=== PATIENT | male | born 1990 | race Caucasian/White ===

== ENCOUNTER 2016-10-25 11:28 | Observation (INO) | payer OTHER ==
[~2016-10-25] VITALS: Ht 177.8 cm; Wt 65.9 kg
[2016-10-25] VITALS (8 sets, daily range): BP systolic 118–146; BP diastolic 68–90; PULSE 56–82; RESP 13–19; O2SAT 95–100
--- NOTE | 2016-10-25 11:44 | ED.REPORT ---
HPI-Seizure Date of Service October 25, 2016 ED Provider: History of Present Illness: 26yo male received 3 immunizations at PCP's this morning, reportedly had a seizure for 30 seconds upon getting off exam room table. No incontinence. Feels mildly lightheaded now. Did not eat anything today. Came in by EMS. He reports one previous similar incident while extracting a splinter from his hand. Nursing Notes Stated Complaint: SEIZURE Chief Complaint: General Complaint Nursing Notes Reviewed: Yes Allergies: Coded Allergies: No Known Allergies (Unverified , 10/25/16) General Time Seen by Provider: 12:00 Chief Complaint Chief Complaint: Seizure, generalized Seizure Anatomic Location: Generalized Hx Obtained From: Patient, Primary care provider Arrived By: Ambulance Onset Occurred: Just prior to arrival Context of Onset: Other (immunizations) Recent Healthcare: Recent doctor visit Similar Sx Previous: Yes Risk-Seizure IC Bleed Risk Stratification RF Statements: No risk factors SAH Risk Stratification RF Statements: No risk factors Past Medical History Past Medical History denies Past Surgical History R Knee ACL repair, 2009 Smoking History Light Tobacco Smoker Social History Alcohol Use: "Social" Drug Use: THC Ambulatory Status Independent Review of Systems Constitutional: Denies: Chills, Fever Eyes: Denies: Blurred bilateral Respiratory: Denies: Shortness of breath Cardiovascular: Denies: Chest pain Neurologic: Reports: Lightheaded, Seizure, Syncope, Denies: Bladder dysfunction, Bowel dysfunction, Dizziness, Focal weakness, Headache Physical Exam Initial Vital Signs Vital Signs (First) Date Time Temp Pulse Resp B/P Pulse Ox O2 Delivery O2 Flow Rate FiO2 10/25/16 11:31 36.9 61 16 123/88 100 Room Air Initial VS: Vital signs normal General/Constitutional: Awake, Alert, No acute distress, Well developed, Well hydrated Neck: Supple, No meningismus, Full range of motion Respiratory / Chest: Breath sounds NL, Breath sounds = bilat, No respiratory distress Cardiovascular: Heart rate NL, Regular rhythm, Heart sounds NL Neurologic: Oriented X3, Speech NL, No motor deficits, No sensory deficits, Cerebellar NL, Memory NL, Gait NL Abdomen: Soft, Non-tender, No guarding, No rebound Interpretation & Diagnostics Lab Results Interpretation Result Diagram: 10/25/16 1320 10/25/16 1320 Test 10/25/16 12:18 10/25/16 13:20 Hold Urine Received (Received) White Blood Count 7.0th/mm3 (3.8-10.1) Red Blood Count 5.54mil/mm3 (4.40-5.80) Hemoglobin 16.2g/dL (13.8-17.2) Hematocrit 47.2% (41.0-50.0) Mean Corpuscular Volume 85.2fL (81-100) Mean Corpuscular Hemoglobin 29.2pg (27.0-35.0) Mean Corpuscular Hemoglobin Concent 34.3% (32.0-37.0) Red Cell Distribution Width 11.9% (12.3-15.4) Platelet Count 183bil/L (150-400) Neutrophils (%) (Auto) 70.2% (40-74) Lymphocytes (%) (Auto) 17.0% (14-46) Monocytes (%) (Auto) 9.7% (4-12) Eosinophils (%) (Auto) 2.7% (0-5) Basophils (%) (Auto) 0.3% (0-3) Sodium Level 140mEq/L (134-144) Potassium Level 5.0mEq/L (3.5-5.2) Chloride Level 100mEq/L (97-108) Carbon Dioxide Level 29mmol/L (18-29) Blood Urea Nitrogen 15mg/dL (6-20) Creatinine 0.63mg/dL (0.76-1.27) Estimat Glomerular Filtration Rate 162mL/min (>59) Glucose Level 115mg/dL (60-99) Calcium Level 9.9mg/dL (8.5-10.1) Total Bilirubin 1.3mg/dL (0.0-1.2) Aspartate Amino Transf (AST/SGOT) 22U/L (0-50) Alanine Aminotransferase (ALT/SGPT) 19U/L (0-44) Alkaline Phosphatase 49U/L (25-150) Total Protein 7.4g/dL (6.4-8.4) Albumin 4.8g/dL (3.4-5.0) Hold Tavares Top Tube Received (Received) ECG Interpretation ECG Interpretation: Possible brugata pattern, reviewed by Dr. Kitchen Interpreted by: ED physician Rhythm / Conduction: Bradycardia Re-Eval/Medical Decision Med Decision/Clinical Course Suspect Pt. had vasovagel syncope following immunizations. Pt. observed in ED for 3 hours, remained stable. labs/ekg reviewed with Dr. Kitchen who advised cardiology review of ekg for possible Brugada pattern to ekg. Dr. Yuen, animal impersonator cardiology eviewed EKG, advised obs and echo. he will arrange outpatient Holter with PCP. Dr. Monroe, hospitalist accepted Pt. to his service. Counseled Regarding: Diagnosis, Lab results, Need for follow-up, When/why to return to ED Discharge & Departure Shift Change Sign-Out Input from Consult: Dr. Yuen advises observation and echocardiogram while inpatient. Impression: Primary Impression: Syncope Syncope type: unspecified Qualified Code: R55 - Syncope and collapse Additional Impression: Abnormal EKG Disposition: ADMITTED TO HOSPITAL Referrals: Aishwarya Rodrigues MD (PCP) EDSupervising Provider for APC: Vaughn Kitchen DO Attending Statement I have seen and examined the patient. I have reviewed the chart and agree with the documentation as recorded by the Midlevel Provider, including assessment, treatment plan, and disposition. Findings from my exam are included in documentation above. Fab Taylor PAC October 25, 2016 11:44 Vaughn Kitchen DO October 25, 2016 15:02
[2016-10-25 13:35] LABS: BASOPHILS % (AUTO) 0.3 % (0-3); EOSINOPHILS % (AUTO) 2.7 % (0-5); MONOCYTES % (AUTO) 9.7 % (4-12); Mean Corpuscular Hemoglobin 29.2 pg (27.0-35.0); Mean Corpuscular Volume 85.2 fL (81-100); NEUTROPHILS % (AUTO) 70.2 % (40-74); Platelet Count 183 bil/L (150-400)
[2016-10-25] MEDS ORDERED: Polyethylene Glycol (PEG) 17 Gm Powder PO PRN (17:20)
[2016-10-25] MEDS ORDERED: Ondansetron 2 mg/mL 2 mL Inj IVPUSH PRN (17:20)
[2016-10-25] MEDS ORDERED: Alum-Mag Hydrox-Simeth 30 mL Suspension PO PRN (17:20)
--- NOTE | 2016-10-25 17:39 | PCM.HPMED ---
Subjective Date of Service October 25, 2016 Primary Provider: Admitting Physician: Epi Monroe MD Primary Care Physician: Aishwarya Rodrigues MD Attending Physician: Epi Monroe MD Admit Status: From the Emergency Department, 23-Hour Observation, Admit to Red Team Chief Complaint: Syncope/1 h Seizure/1h History of Present Illness: 26-year-old gentleman with no significant past medical history was transferred from his PCPs office due to an episode of syncope and seizure-like activity which happened 1 hour ago. Patient went to his PCPs office and got immunization. He states shortly following immunization he developed lightheadedness and passed out. He states he was told that he had syncope and was unconscious for about 30 seconds and had none vigorous shaking movements of his upper extremities Which prompted transfer to the emergency room. Patient states he had similar episode 6 months ago while trying to remove a piece of glass from his hand using tweezer . That episode was witnessed by his girlfriend and reportedly had similar shaking. Patient also gives history of on and off near syncope in which he feels lightheaded when he sits up from supine or stands up from sitting suddenly. He gets these episodes once in a while. He thinks probably related to dehydration given the fact that it occurs more frequently in summer ED course: Unremarkable vital signs and exam. Unremarkable labs EKG abnormality and suspicious for Brugada syndrome. ED contacted cardiology and recommended overnight observation with workup with echocardiogram and possible EP eval tomorrow Review of Systems: A comprehensive review of systems performed, pertinent positives and negatives included in history of present illness Allergies Coded Allergies: No Known Allergies (Unverified , 10/25/16) Home Medications No home medications PMH None Surgical History Right knee surgery Family History Paternal uncle suddenly at age 49 due to possible heart attack His dad's paternal uncle had a pacemaker No other family history of sudden cardiac Social History Hx Alcohol Use: No Hx Substance Use: Yes (daily marijuana use) Smoking Status: Light Tobacco Smoker Exam Vital Signs Vital Sign - Last Date Time Temp Pulse Resp B/P Pulse Ox O2 Delivery O2 Flow Rate FiO2 10/25/16 17:21 36.8 56 13 121/68 99 Room Air Exam Gen. patient is lying comfortably in hospital bed HEENT: Head is normocephalic atraumatic, Pupils equal and reactive, extraocular movements intact, Lungs clear to auscultation bilaterally Heart regular rate and rhythm without murmurs gallops or rubs Abdomen soft nontender without hepatosplenomegaly Extremities pulses are present dorsalis pedis posterior tibialis and radial. tSkin is warm and dry there are no rashes, Psych alert and oriented to person place and time Neuro cranial nerves II through XII are grossly intact Lymph: There is no lymphadenopathy appreciated in the cervical supra infraclavicular regions : no alexandre Lab and Diagnostics Result Diagram: 10/25/16 1320 10/25/16 1320 Assessment & Plan 26-year-old gentleman with no significant past medical history was transferred from his PCPs office due to an episode of syncope and seizure-like activity which happened 1 hour ago. #Vasovagal syncope -History consistent with vasovagal syncope -No further workup # Abnormal EKG suspicious for Brugada syndrome - telemetry -Cardiology contacted by ED, they recommend echocardiogram and will arrange for outpatient Holter upon discharge -Possible EP consult tomorrow by cardiology Observation status, possible discharge tomorrow Full code Resuscitation Status: CPR: Attempt Resuscitation copies to: Aishwarya Rodrigues MD, Melaku MD October 25, 2016 17:39
[2016-10-26 00:31] VITALS: BP 107/63; PULSE 71; RESP 18; O2SAT 96
[2016-10-26 05:57] VITALS: BP 107/62; PULSE 84; RESP 18; O2SAT 97
[2016-10-26 08:08] VITALS: BP 117/68; PULSE 60; RESP 18; O2SAT 99
[2016-10-26 09:53] VITALS: PULSE 60
[2016-10-26 11:56] VITALS: BP 104/63; PULSE 52; RESP 18; O2SAT 100
--- NOTE | 2016-10-26 14:17 | PCM.DIMED ---
Discharge Instructions Date of Service October 26, 2016 Dates of Hospitalization October 25, 2016 at 17:10 Discharge Diagnosis Discharge Diagnosis #Vasovagal syncope # Abnormal EKG suspicious for Brugada syndrome Diet No restrictions Activity Limited until seen by PCP Call your provider Fever or Chills, Shortness of breath, Bleeding, Chest pain, Vomitting, Excessive diarrhea, Weakness (unilateral) Patient Instructions You were hospitalized due to vasovagal syncope. You were hospitalized due to concern of abnormal initial EKG in the emergency room which was suspicious for Brugada syndrome .( a rare genetic heart conduction abnormality which can cause familial sudden cardiac .) Please follow-up with PCP Dr. Rodrigues and he will arrange for outpatient Holter monitoring and echocardiogram. Please also follow up with in 1-2 weeks. Follow-up plan please follow up with PCP in 1 week Follow-up Provider: Aishwarya Rodrigues MD Follow-up with PCP in: 1 week Provider: Esvin Chowdhury MD Follow-up in: 1 week Epi Monroe MD October 26, 2016 14:17
--- NOTE | 2016-10-26 16:20 | PCM.DC.MED ---
Discharge Summary Date of Service October 26, 2016 Dates of Hospitalization Date of Hospital Admission October 25, 2016 at 17:10 Date of Discharge: October 26, 2016 Providers: Admitting Physician: Epi Monroe MD Primary Care Physician: Aishwarya Rodrigues MD Attending Physician: Epi Monroe MD Diagnosis at Time of Discharge Diagnosis at Time of Discharge #Vasovagal syncope # Abnormal EKG suspicious for Brugada syndrome Consultations cardiology Dr Chowdhury Procedures ECG 12 Lead SR ,CORNELIO on lead V1-2 ,suspicious for brugada Brief History per HPI 26-year-old gentleman with no significant past medical history was transferred from his PCPs office due to an episode of syncope and seizure-like activity which happened 1 hour ago. Patient went to his PCPs office and got immunization. He states shortly following immunization he developed lightheadedness and passed out. He states he was told that he had syncope and was unconscious for about 30 seconds and had none vigorous shaking movements of his upper extremities Which prompted transfer to the emergency room. Patient states he had similar episode 6 months ago while trying to remove a piece of glass from his hand using tweezer . That episode was witnessed by his girlfriend and reportedly had similar shaking. Patient also gives history of on and off near syncope in which he feels lightheaded when he sits up from supine or stands up from sitting suddenly. He gets these episodes once in a while. He thinks probably related to dehydration given the fact that it occurs more frequently in summer ED course: Unremarkable vital signs and exam. Unremarkable labs EKG abnormality and suspicious for Brugada syndrome. ED contacted cardiology and recommended overnight observation with workup with echocardiogram and possible EP eval tomorrow Hospital Course 26-year-old gentleman with no significant past medical history was transferred from his PCPs office due to an episode of syncope and seizure-like activity which happened 1 hour ago. #Vasovagal syncope -History consistent with vasovagal syncope -No further workup # Abnormal EKG suspicious for Brugada syndrome - telemetry, no event overnight -Cardiology contacted by ED, they recommend echocardiogram and PCP will arrange for outpatient Holter upon discharge -Also spoke with PCP Dr Rodrigues and he will follow with echocardiogram results and outpatient event monitoring -Brugada unlikely given no family history of sudden cardiac except an uncle at age 49 which seems to be due to heart attack -Advised to follow with cardiology outpatient Discharged home Condition on discharge stable Full code Exam Vital Signs (Last) Date Time Temp Pulse Resp B/P Pulse Ox O2 Delivery O2 Flow Rate FiO2 10/26/16 11:56 36.7 52 18 104/63 100 Room Air Exam Gen. patient is lying comfortably in hospital bed HEENT: Head is normocephalic atraumatic, Pupils equal and reactive, extraocular movements intact, Lungs clear to auscultation bilaterally Heart regular rate and rhythm without murmurs gallops or rubs Abdomen soft nontender without hepatosplenomegaly Extremities pulses are present dorsalis pedis posterior tibialis and radial. tSkin is warm and dry there are no rashes, Psych alert and oriented to person place and time Neuro cranial nerves II through XII are grossly intact Lymph: There is no lymphadenopathy appreciated in the cervical supra infraclavicular regions : no alexandre Test 10/25/16 12:18 10/25/16 13:20 Hold Urine Received (Received) White Blood Count 7.0th/mm3 (3.8-10.1) Red Blood Count 5.54mil/mm3 (4.40-5.80) Hemoglobin 16.2g/dL (13.8-17.2) Hematocrit 47.2% (41.0-50.0) Mean Corpuscular Volume 85.2fL (81-100) Mean Corpuscular Hemoglobin 29.2pg (27.0-35.0) Mean Corpuscular Hemoglobin Concent 34.3% (32.0-37.0) Red Cell Distribution Width 11.9% (12.3-15.4) Platelet Count 183bil/L (150-400) Neutrophils (%) (Auto) 70.2% (40-74) Lymphocytes (%) (Auto) 17.0% (14-46) Monocytes (%) (Auto) 9.7% (4-12) Eosinophils (%) (Auto) 2.7% (0-5) Basophils (%) (Auto) 0.3% (0-3) Sodium Level 140mEq/L (134-144) Potassium Level 5.0mEq/L (3.5-5.2) Chloride Level 100mEq/L (97-108) Carbon Dioxide Level 29mmol/L (18-29) Blood Urea Nitrogen 15mg/dL (6-20) Creatinine 0.63mg/dL (0.76-1.27) Estimat Glomerular Filtration Rate 162mL/min (>59) Glucose Level 115mg/dL (60-99) Calcium Level 9.9mg/dL (8.5-10.1) Total Bilirubin 1.3mg/dL (0.0-1.2) Aspartate Amino Transf (AST/SGOT) 22U/L (0-50) Alanine Aminotransferase (ALT/SGPT) 19U/L (0-44) Alkaline Phosphatase 49U/L (25-150) Total Protein 7.4g/dL (6.4-8.4) Albumin 4.8g/dL (3.4-5.0) Hold Tavares Top Tube Received (Received) Discharge Medications No Active Prescriptions or Reported Meds Followup Plan Disposition: Home Follow-up plan please follow up with PCP in 1 week Discharge Diet: No restrictions Discharge Activity: Limited until seen by PCP Patient Instructions You were hospitalized due to vasovagal syncope. You were hospitalized due to concern of abnormal initial EKG in the emergency room which was suspicious for Brugada syndrome .( a rare genetic heart conduction abnormality which can cause familial sudden cardiac .) Please follow-up with PCP Dr. Rodrigues and he will arrange for outpatient Holter monitoring and echocardiogram. Please also follow up with in 1-2 weeks. Follow-up Provider: Aishwarya Rodrigues MD Follow-up with PCP in: 1 week Provider: Esvin Chowdhury MD Follow-up in: 1 week copies to: Aishwarya Rodrigues MD, Melaku MD October 26, 2016 16:20
== END 2016-10-26 16:23 | disposition home or self-care (01) ==
LOC: EDUNIT# 11:28 → SED 11:28 → EDBD 11:28 → OSC 17:10
PROVIDERS: ADMIT Internal Medicine; ATTEND Internal Medicine
DX: R55 Syncope and collapse (principal); R94.31 Abnormal electrocardiogram [ECG] [EKG]; G40.89 Other seizures; F17.210 Nicotine dependence, cigarettes, uncomplicated; F12.90 Cannabis use, unspecified, uncomplicated
CPT/HCPCS: 36415; 80053; 81002; 82075; 82948; 85025; 93005; 99285; G0378